=== PATIENT | male | born 1995 | race Caucasian/White ===

== ENCOUNTER 2019-01-12 19:00 | Emergency (ER) | payer BC ==
[2019-01-12 19:17] VITALS: BP 120/76
--- NOTE | 2019-01-12 19:36 | UC ---
Throat Pain/Nasal Ortega HPI - HPI Summary HPI Summary: Patient is a 23 year old male , who present today to the urgent care with sore throat for past 2 days. He reports that his girlfriend has similar symptoms as well. States feeling better today. He denies any fever, cough, chest pain or shortness of breath. Denies any abdominal pain , nausea or vomiting , diarrhea or constipation. He has been taking NyQuil for relief. - History of Current Complaint Chief Complaint: UCGeneralIllness Stated Complaint: SWOLLEN TONSILS Time Seen by Provider: 01/12/19 19:01 Hx Obtained From: Patient Pain Intensity: 4 - Allergies/Home Medications Allergies/Adverse Reactions: Allergies Allergy/AdvReac Type Severity Reaction Status Date / Time No Known Allergies Allergy Verified 01/12/19 19:17 Home Medications: Home Medications NK [No Home Medications Reported] 01/12/19 [History Confirmed 01/12/19] PMH/Surg Hx/FS Hx/Imm Hx - Additional Past Medical History Additional PMH: Past Medical History : None Past Surgical History: No Past History of Procedure Family History : non contributory Social History : weekly alcohol, non smoker, no drug use. q Previously Healthy: Yes - Surgical History Surgical History: None - Family History Known Family History: Positive: Non-Contributory - Social History Alcohol Use: Weekly Substance Use Type: None Smoking Status (MU): Never Smoked Tobacco Review of Systems All Other Systems Reviewed And Are Negative: Yes Constitutional: Positive: Negative Skin: Positive: Negative Eyes: Positive: Negative ENT: Positive: Sore Throat, Nasal Discharge, Other - Congestion Respiratory: Positive: Negative. Negative: Cough Cardiovascular: Positive: Negative. Negative: Chest Pain Gastrointestinal: Positive: Negative Genitourinary: Positive: Negative Motor: Positive: Negative Neurovascular: Positive: Negative Musculoskeletal: Positive: Negative Neurological: Positive: Negative Psychological: Positive: Negative Is Patient Immunocompromised?: No Physical Exam - Summary Physical Exam Summary: Physical Exam: Const: Appears well. No signs of apparent distress present. Alert and oriented x 3. Musculo: Walks with a normal gait. Head/Face: Atraumatic, normocephalic on inspection. Eyes: EOMI and PERRLA in both eyes. Conjunctivae clear. No discharge noted ENT: Hearing normal, TM normal appearing bilaterally, non bulging , non erythematous No tenderness to palpation on maxillary and frontal sinus. There is pharyngeal erythema with slight tonsil and alignment bilaterally and whitish exudates noted. Uvula is midline. There is anterior cervical lymphadenopathy noted, posterior cervical lymphadenopathy is also present Respiratory: Respirations are unlabored. Lungs clear to auscultation bilaterally, no wheezing , rhonchi or rales noted . CVS: Regular rate and Rhythm, S1S2 normal , no murmurs identified. Extremities: Peripheral circulation is grossly normal. Pulses 2+ Abdomen : Soft non tender , nondistended , Bowel sounds present . No guarding , rebound tenderness or rigidity noted. Skin: No lesions or rash located on the upper extremities or on the lower extremities. Neuro: Cranial nerves II to XII intact, motor and sensory intact. DTR Intact bilaterally. Mood is normal. Affect is normal. Triage Information Reviewed: Yes Vital Signs: Initial Vital Signs Temp 99.9 F 01/12/19 19:15 Pulse 96 01/12/19 19:15 Resp 16 01/12/19 19:15 BP 120/76 01/12/19 19:15 Pulse Ox 100 01/12/19 19:15 Vital Signs Reviewed: Yes Throat Pain/Nasal Course/Dx - Course Course Of Treatment: During the visit today, we obtained a rapid strep test which is negative . We discussed the findings , suspect viral pharyngitis versus infectious mononucleosis and did offer testing for mononucleosis but he declined . He does not participate in any contact sports at this time . Reviewed conservative management and return if no improvement over the next 3-4 days. Patient expressed understanding . - Differential Dx/Diagnosis Provider Diagnosis: Pharyngitis Discharge ED - Sign-Out/Discharge Documenting (check all that apply): Patient Departure All imaging exams completed and their final reports reviewed: No Studies - Discharge Plan Condition: Stable Disposition: HOME Patient Education Materials: Viral Syndrome (ED) Ref[place]: [facility] [place] [facility] [place] [facility] [[place]] - 1 Week No Primary Care Phys,NOPCP [Primary Care Provider] - Additional Instructions: Take ibuprofen or tylenol for fever. OK to take nyquil at night. Salt water gargles and throat lozenges. Follow up with PMD in 1 week If symptoms get worse, return to urgent care or ER . - Billing Disposition and Condition Condition: STABLE Disposition: Home
== END 2019-01-12 20:06 | disposition home or self-care (01) ==
LOC: UCCORT 19:00
DX: J02.9 Acute pharyngitis, unspecified (principal)
CPT/HCPCS: 87651; 99201; G0463